=== PATIENT | male | born 1960 | race Caucasian/White ===

== ENCOUNTER → 2016-09-15 | Outpatient (CLI) | payer BC ==
[2016-09-15 10:41] LABS: ALT 33 U/L (21-72); AST 24 U/L (17-59); Alkaline Phosphatase 80 U/L (38-126); Anion Gap 11 mmol/L; Blood Urea Nitrogen 25 mg/dL (9-20); Calcium 9.6 mg/dL (8.4-10.2); Carbon Dioxide 26 mmol/L (22-30); Chloride 104 mmol/L (98-107); Cholesterol 173 mg/dL (<200); Glucose 106 mg/dL (74-99); HDL Cholesterol 51 mg/dL (40-60); Non-African American GFR(MDRD) >60 (>60 ml/min/1.73 sqM); Potassium 4.8 mmol/L (3.5-5.1); Sodium 141 mmol/L (137-145); Total Bilirubin 0.9 mg/dL (0.2-1.3); Total Protein 7.6 g/dL (6.3-8.2); Triglycerides 47 mg/dL (<150)
[2016-09-15 10:48] LABS: Basophils # (A) 0.1 k/uL (0-0.2); Basophils % (A) 1 %; CH 31.4; CHCM 33.6; Eosinophils # (A) 0.3 k/uL (0-0.7); Eosinophils % (A) 4 %; HCT 46.8 % (39.0-53.0); HDW 2.35; HGB 15.8 gm/dL (13.0-17.5); Luc # (Auto) 0.19; Luc % (Auto) 3; Lymphocytes # (A) 2.3 k/uL (1.0-4.8); Lymphocytes % (A) 34 %; MCH 31.8 pg (25.0-35.0); MCHC 33.8 g/dL (31.0-37.0); Mean Platelet Volume 7.4; Monocytes # (A) 0.5 k/uL (0-1.0); Monocytes % (A) 7 %; Neutrophils # (A) 3.6 k/uL (1.3-7.7); Neutrophils % (A) 52 %; RBC 4.98 m/uL (4.30-5.90); WBC 6.9 k/uL (3.8-10.6); WBC (Perox) 6.87
[2016-09-15 11:29] LABS: Hepatitis C Virus IgG Ab Negative (Negative); Hepatitis C Virus IgG Index 0.02
[2016-09-15 12:13] LABS: Prostate Specific Antigen 3.37 ng/mL (0.00-4.00)
== END | disposition home or self-care (01) ==
LOC: LABWHC1 10:05
PROVIDERS: ATTEND Family Medicine
DX: Z00.00 Encounter for general adult medical examination without abnormal findings (principal)
CPT/HCPCS: 36415; 80053; 80061; 84153; 85025; 86803

== ENCOUNTER 2019-04-29 17:54 | Emergency (ER) | payer BC, OTHER ==
[2019-04-29 18:09] LABS: Glucose,Whole Blood 112 mg/dL (75-99)
[2019-04-29] MEDS ORDERED: SODIUM CHLORIDE 0.9% 1,000 ML IV STA (18:10)
[2019-04-29] MEDS ORDERED: FAMOTIDINE 20 MG/2 ML VIAL IV STA (18:11)
[2019-04-29] MEDS ORDERED: methylPREDNISolone SOD SUCCI 125 MG/2 ML VIAL IV STA (18:11)
[2019-04-29] MEDS ORDERED: diphenhydrAMINE 50 MG/ML 1 ML VIAL IVP STA (18:11)
--- NOTE | 2019-04-29 18:30 | CT ---
EXAMINATION TYPE: CT brain wo con for TPA DATE OF EXAM: 04/29/2019 COMPARISON: None HISTORY: ams CT DLP: 1090.4 mGycm Automated exposure control for dose reduction was used. Multiple axial sections were obtained of the brain without contrast. There is 4.5 cm area of high attenuation left posterior temporal lobe related to acute parenchymal he morrhage. There is no midline shift. There is slight mass effect upon the posterior left lateral vent ricle. Calvarium is intact. IMPRESSION: Acute left temporal lobe parenchymal hemorrhage could relate to acute hemorrhagic infarct. Exam was d iscussed with Dr. Parada at 6:30 PM.
[2019-04-29 18:45] LABS: Basophils # (A) 0.1 k/uL (0-0.2); Basophils % (A) 1 %; Eosinophils # (A) 0.3 k/uL (0-0.7); Eosinophils % (A) 3 %; HCT 49.4 % (39.0-53.0); HGB 16.3 gm/dL (13.0-17.5); Lymphocytes # (A) 4.3 k/uL (1.0-4.8); Lymphocytes % (A) 40 %; MCH 30.6 pg (25.0-35.0); MCHC 33.1 g/dL (31.0-37.0); MCV 92.5 fL (80.0-100.0); Mean Platelet Volume 8.1; Monocytes # (A) 0.9 k/uL (0-1.0); Monocytes % (A) 9 %; Neutrophils # (A) 4.8 k/uL (1.3-7.7); Neutrophils % (A) 44 %; Platelet Count 353 k/uL (150-450); RBC 5.33 m/uL (4.30-5.90); RDW 12.5 % (11.5-15.5); WBC 10.8 k/uL (3.8-10.6)
[2019-04-29] MEDS ORDERED: levETIRAcetam IV 1,000 MG in SALINE 1 100ML.BAG IVPB STA (18:46)
[2019-04-29 19:01] LABS: Albumin 4.7 g/dL (3.5-5.0); Total Bilirubin 0.5 mg/dL (0.2-1.3); Total Protein 7.8 g/dL (6.3-8.2)
--- NOTE | 2019-04-29 19:03 | CT ---
EXAMINATION TYPE: CT angio head neck DATE OF EXAM: 04/29/2019 COMPARISON: None HISTORY: ams CT DLP: 484.5 mGycm Automated exposure control for dose reduction was used. CONTRAST: Performed with IV Contrast, patient injected with 65cc mL of Isovue 370. There are 3-D post processed images. Multiple axial sections were obtained from the level of the aortic arch to the vertex of the brain wi th intravenous contrast. FINDINGS: There is normal branching pattern of the great vessels on the aortic arch. There is bilateral arteria l flow in the subclavian arteries. There is bilateral arterial flow in the vertebral arteries. There is normal contrast opacification of the common internal and external carotid arteries. There is wide patency of the carotid artery bifurcations. There is no evidence of carotid or vertebral artery aneur ysm or dissection. Left vertebral artery is larger than the right. There is arterial flow in the vertebrobasilar artery system. There is arterial flow in the anterior m iddle and posterior cerebral arteries. There is high attenuation in the left posterior parietal lobe related to acute parenchymal hemorrhage. This measures 4 x 3.5 cm. There is some surrounding edema. T here is some mass effect upon adjacent vessels. There is no evidence of intracranial aneurysm or neov ascularity. There is normal contrast opacification of the venous sinuses. There is no evidence of hem odynamic intracranial arterial stenosis. IMPRESSION: Acute parenchymal hemorrhage left posterior parietal lobe. No significant angiographic abnormality. N egative CT angiogram of the neck.
[2019-04-29 19:04] LABS: Creatine Kinase 88 U/L (55-170)
[2019-04-29 19:09] LABS: INR 0.9 (<1.2); Partial Thromboplastin Time 22.5 sec (22.0-30.0); Prothrombin Time 9.5 sec (9.0-12.0)
--- NOTE | 2019-04-29 19:10 | ED ---
Neuro HPI - General Chief Complaint: Neuro Symptoms/Deficit Stated Complaint: poss stroke Time Seen by Provider: 04/29/19 18:10 Source: family, RN notes reviewed Mode of arrival: wheelchair Limitations: no limitations - History of Present Illness Is the patient presenting with stroke symptoms?: Yes Last Known Well Date: 04/29/19 Last Known Well Time: 16:30 Initial Comments: This is a 58-year-old male with history depression and history of hernia repair. A nondrinker nonsmoker no prior history of heart lung or neurological disease who started developing expressive aphasia and confusion 30 minutes prior to arrival here by private vehicle. No reports of headache nausea vomiting fevers chills sweats no definite focal weakness. No trauma reported no recent illnesses. - Related Data Allergies/Adverse Reactions: Allergies Allergy/AdvReac Type Severity Reaction Status Date / Time shellfish derived [Shellfish] Allergy Anaphylaxis Verified 04/29/19 18:03 Review of Systems ROS Statement: Those systems with pertinent positive or pertinent negative responses have been documented in the HPI. ROS Other: All systems not noted in ROS Statement are negative. General Exam - General Exam Comments Initial Comments: This is a well-developed well-nourished awake but confused male Limitations: no limitations General appearance: alert, other (Confused) Head exam: Present: atraumatic, normocephalic, normal inspection Eye exam: Present: normal appearance, PERRL, EOMI. Absent: scleral icterus, conjunctival injection, periorbital swelling ENT exam: Present: normal exam, mucous membranes moist Neck exam: Present: normal inspection, full ROM, other (No stridor JVD or bruits). Absent: tenderness, meningismus, lymphadenopathy Respiratory exam: Present: normal lung sounds bilaterally. Absent: respiratory distress, wheezes, rales, rhonchi, stridor Cardiovascular Exam: Present: regular rate, normal rhythm, normal heart sounds. Absent: systolic murmur, diastolic murmur, rubs, gallop, clicks GI/Abdominal exam: Present: soft, normal bowel sounds. Absent: distended, tenderness, guarding, rebound, rigid Extremities exam: Present: normal inspection, full ROM, normal capillary refill. Absent: tenderness, pedal edema, joint swelling, calf tenderness Back exam: Present: normal inspection Neurological exam: Present: alert, altered, CN II-XII intact Psychiatric exam: Present: normal affect, normal mood Skin exam: Present: warm, dry, intact, normal color. Absent: rash Stroke MDM - Lab Data Result diagrams: 04/29/19 18:20 04/29/19 18:20 Lab Results 04/29/19 04/29/19 04/29/19 Range/Units 18:02 18: 18:20 WBC 10.8 H (3.8-10.6) k/uL RBC 5.33 (4.30-5.90) m/uL Hgb 16.3 (13.0-17.5) gm/dL Hct 49.4 (39.0-53.0) % MCV 92.5 (80.0-100.0) fL MCH 30.6 (25.0-35.0) pg MCHC 33.1 (31.0-37.0) g/dL RDW 12.5 (11.5-15.5) % Plt Count 353 (150-450) k/uL PT (9.0-12.0) sec INR (<1.2) APTT (22.0-30.0) sec Sodium 137 (137-145) mmol/L Potassium 4.0 (3.5-5.1) mmol/L Chloride 102 (98-107) mmol/L Carbon Dioxide 23 (22-30) mmol/L Anion Gap 12 mmol/L BUN 24 H (9-20) mg/dL Creatinine 1.16 (0.66-1.25) mg/dL Est GFR (CKD-EPI)AfAm 80 (>60 ml/min/1.73 sqM) Est GFR (CKD-EPI)NonAf 70 (>60 ml/min/1.73 sqM) Glucose 119 H (74-99) mg/dL POC Glucose (mg/dL) 112 H (75-99) mg/dL POC Glu Beet Topper ID Rupal Drew Calcium 10.0 (8.4-10.2) mg/dL Total Bilirubin 0.5 (0.2-1.3) mg/dL AST 30 (17-59) U/L ALT 29 (4-49) U/L Alkaline Phosphatase 84 (38-126) U/L Total Creatine Kinase (55-170) U/L Total Protein 7.8 (6.3-8.2) g/dL Albumin 4.7 (3.5-5.0) g/dL 04/29/19 04/29/19 Range/Units 18:20 18:20 WBC (3.8-10.6) k/uL RBC (4.30-5.90) m/uL Hgb (13.0-17.5) gm/dL Hct (39.0-53.0) % MCV (80.0-100.0) fL MCH (25.0-35.0) pg MCHC (31.0-37.0) g/dL RDW (11.5-15.5) % Plt Count (150-450) k/uL PT 9.5 (9.0-12.0) sec INR 0.9 (<1.2) APTT 22.5 (22.0-30.0) sec Sodium (137-145) mmol/L Potassium (3.5-5.1) mmol/L Chloride (98-107) mmol/L Carbon Dioxide (22-30) mmol/L Anion Gap mmol/L BUN (9-20) mg/dL Creatinine (0.66-1.25) mg/dL Est GFR (CKD-EPI)AfAm (>60 ml/min/1.73 sqM) Est GFR (CKD-EPI)NonAf (>60 ml/min/1.73 sqM) Glucose (74-99) mg/dL POC Glucose (mg/dL) (75-99) mg/dL POC Glu Beet Topper ID Calcium (8.4-10.2) mg/dL Total Bilirubin (0.2-1.3) mg/dL AST (17-59) U/L ALT (4-49) U/L Alkaline Phosphatase (38-126) U/L Total Creatine Kinase 88 (55-170) U/L Total Protein (6.3-8.2) g/dL Albumin (3.5-5.0) g/dL - NIH Stroke Scale 1a. Level of Consciousness: (0) alert 1b. LOC Questions: (2) answers no questions correctly 1c. LOC Commands: (2) performs no tasks correctly 2. Best Gaze: (2) forced deviation 3. Visual: (3) bilateral hemianopia 5a. Motor Arm Left: (4) no movement 5b. Motor Arm Right: (4) no movement 6a. Motor Leg Left: (4) no movement 6b. Motor Leg Right: (4) no movement 7. Limb Ataxia: (0) absent 8. Sensory: (1) mild/moderate sensory loss 9. Best Language: (2) severe aphasia 10. Dysarthria: (1) mild/moderate dysarthria 11. Extinction/Inattention: (1) visual/tactile inattention - Thrombolytic Inclusion/Exclusion Thrombolytic Contraindications: GI or Other Bleeding (LeftTemporal lobe bleed) - EKG Data -: EKG Interpreted by Me EKG shows normal: sinus rhythm (Sinus rhythm of 94. Interval 156 QRS duration 60 QT since QTC 344/4:30 low-voltage QRS no acute ST-T wave changes) Past Medical History Past Medical History: No Reported History History of Any Multi-Drug Resistant Organisms: None Reported Past Surgical History: Hernia Repair Past Psychological History: No Psychological Hx Reported Smoking Status: Never smoker Past Alcohol Use History: None Reported Past Drug Use History: None Reported Course Vital Signs 04/29/19 04/29/19 04/29/19 17:58 18:15 18:45 Temperature 97.3 F L 97.3 F L Pulse Rate 104 H 84 84 Respiratory 18 18 18 Rate Blood Pressure 170/106 134/78 134/78 O2 Sat by Pulse 98 100 100 Oximetry - Reevaluation(s) Reevaluation #1: 04/29/19 19:16 Did reevaluate patient on multiple occasions he demonstrates no change in his status he does maintain adequate blood pressure. He does maintain his airway. Reevaluation #2: 04/29/19 19:16 A code stroke was called on the patient Dr. Chong did respond and did review the CAT scans were performed the initial plan was to transfer the patient to [facility] for microbiology laboratory manager. Discussion with family members initially confirmed that this was supple however the patient's family then changed her mind and requested [facility]. I did discuss the case with the transfer team as well as with Dr. Quick who did agree to accept the patient transfer. Patient will be transferred by ground ALS ambulance. The transfer can be performed quicker by ground in by air at this time. I did discuss with the patient's family. Agreement with this. Critical Care Time Critical Care Time: Yes Critical Care Time: 55 minutes of critical care time which included initial presentation with history physical labs imaging. Multiple reevaluation the patient multiple discussion with the patient's family members. Discussion with the interventional neurologist. Discussion with the receiving facility staff also discussed with paramedics. Disposition Clinical Impression: Cerebrovascular accident (CVA), Hemorrhagic stroke Disposition: OTHER INSTITUTION NOT DEFINED Condition: Serious Is patient prescribed a controlled substance at d/c from ED?: No Referrals: Rufus Bradford MD [Primary Care Provider] - 1-2 days - Out of Hospital Transfer - Req. Specs Out of Hospital Transfer - Requested Specifics: Other Emergency Center
[2019-04-29 19:17] LABS: Creatine Kinase MB 0.8 ng/mL (0.0-2.4); Troponin I <0.012 ng/mL (0.000-0.034)
[2019-04-29] MEDS ORDERED: cefTRIAXone IN SWFI 1,000 MG/10 ML SYRINGE IVP STA (19:21)
[2019-04-29 19:29] VITALS: BP 155/92; PULSE 91; RESP 16; TEMP 98.6
--- NOTE | 2019-04-29 19:40 | XR ---
EXAMINATION TYPE: XR chest 2V DATE OF EXAM: 04/29/2019 COMPARISON: NONE HISTORY: Confusion TECHNIQUE: FINDINGS: There is no heart failure nor confluent pneumonic infiltrate. Costophrenic angles are clear . There are no hilar masses. There is poor inspiration. Bony thorax is intact. IMPRESSION: Poor inspiration. Otherwise negative exam.
== END 2019-04-29 19:24 | disposition other institution (70) ==
LOC: EC 17:54
DX: I62.9 Nontraumatic intracranial hemorrhage, unspecified (principal); R47.01 Aphasia; R29.730 NIHSS score 30; Z91.013 Allergy to seafood
CPT/HCPCS: 36415; 80053; 82550; 82553; 84484; 85025; 85610; 85730; 71046; 70496; 70450; 70498; 99291; 96374; 96375 ×3; 96361; J1200; J2930; J1953; Q9967

== ENCOUNTER 2020-05-28 00:12 | Emergency (ER) | payer OTHER ==
[2020-05-28 00:20] VITALS: TEMP 98
--- NOTE | 2020-05-28 01:42 | ED ---
Weakness HPI - General Chief complaint: Weakness Stated complaint: Fever, SOB Time Seen by Provider: 05/28/20 00:36 Source: patient Mode of arrival: ambulatory Limitations: physical limitation - History of Present Illness Initial comments: 59-year-old male presents to the emergency department with a chief complaint of weakness. Patient reports he went to his son's house about 2 weeks ago and several days after began feeling fatigued with body aches. He does report a dry cough that only lasted for several days but has since resolved. Denies any ch est pain or shortness of breath. Does report chills but no fevers at home. States his also tested positive and is having the similar symptoms. He does report decreased appetite but denies any nausea vomiting or diarrhea. Not a smoker. No history of COPD or asthma. - Related Data Allergies Allergy/AdvReac Type Severity Reaction Status Date / Time shellfish derived [Shellfish] Allergy Anaphylaxis Verified 05/28/20 00:20 Review of Systems ROS Statement: Those systems with pertinent positive or pertinent negative responses have been documented in the HPI. ROS Other: All systems not noted in ROS Statement are negative. Past Medical History Past Medical History: Hyperlipidemia, Hypertension History of Any Multi-Drug Resistant Organisms: None Reported Past Surgical History: Hernia Repair Past Psychological History: No Psychological Hx Reported Smoking Status: Never smoker Past Alcohol Use History: None Reported Past Drug Use History: None Reported General Exam Limitations: no limitations General appearance: alert, in no apparent distress Head exam: Present: atraumatic, normocephalic, normal inspection Eye exam: Present: normal appearance, PERRL, EOMI Pupils: Present: normal accommodation ENT exam: Present: normal exam, normal oropharynx, mucous membranes moist Neck exam: Present: normal inspection, full ROM. Absent: tenderness Respiratory exam: Present: normal lung sounds bilaterally. Absent: respiratory distress, wheezes, rales, rhonchi, stridor, chest wall tenderness, accessory muscle use (No retractions) Cardiovascular Exam: Present: regular rate, normal rhythm, normal heart sounds. Absent: bradycardia, tachycardia, systolic murmur, diastolic murmur GI/Abdominal exam: Present: soft. Absent: distended, tenderness, guarding, rebound Extremities exam: Present: normal inspection, full ROM, normal capillary refill. Absent: tenderness, pedal edema, joint swelling, calf tenderness Back exam: Present: normal inspection, full ROM. Absent: tenderness, CVA tenderness (R), CVA tenderness (L) Neurological exam: Present: alert, oriented X3 Psychiatric exam: Present: normal affect, normal mood Skin exam: Present: warm, dry, intact, normal color Course Vital Signs 05/28/20 05/28/20 00:15 03:51 Temperature 98 F Pulse Rate 86 72 Respiratory 18 16 Rate Blood Pressure 106/69 110/68 O2 Sat by Pulse 94 L 94 L Oximetry EKG Findings - EKG Comments: EKG Findings:: Sinus rhythm and no ST or T-wave changes. Ventricular rate 75, GA 158, QRS 68, QTC 431. Medical Decision Making - Medical Decision Making 59-year-old male presents to the emergency room with a chief complaint of weakness and bodyaches. On physical examination, patient does not appear to be in any respiratory distress. Vital signs are within normal limits. A reveals diffuse airspace opacities. CBC CMP unremarkable. Coags within normal limits. D-dimer 0.47. Slight elevation in inflammatory markers LDH and CRP. Patient tested positive for coronavirus here. He was given the monoclonal antibiotics. Patient was observed for one hour after administration of the medication. Patient feels comfortable going home. Return parameters were thoroughly discussed with patient was understanding and agreeable. Case discussed with . - Lab Data Result diagrams: 05/28/20 01:15 05/28/20 01:15 Lab Results 05/28/20 05/28/20 05/28/20 Range/Units 01:15 01:15 01:15 WBC 7.8 (3.8-10.6) k/uL RBC 4.80 (4.30-5.90) m/uL Hgb 15.3 (13.0-17.5) gm/dL Hct 44.0 (39.0-53.0) % MCV 91.6 (80.0-100.0) fL MCH 32.0 (25.0-35.0) pg MCHC 34.9 (31.0-37.0) g/dL RDW 12.1 (11.5-15.5) % Plt Count 278 (150-450) k/uL MPV 8.0 Neutrophils % 60 % Lymphocytes % 27 % Monocytes % 8 % Eosinophils % 3 % Basophils % 1 % Neutrophils # 4.6 (1.3-7.7) k/uL Lymphocytes # 2.1 (1.0-4.8) k/uL Monocytes # 0.6 (0-1.0) k/uL Eosinophils # 0.2 (0-0.7) k/uL Basophils # 0.1 (0-0.2) k/uL PT 9.5 (9.0-12.0) sec INR 0.9 (<1.2) APTT 25.0 (22.0-30.0) sec D-Dimer 0.47 (<0.60) mg/L FEU Sodium 136 L (137-145) mmol/L Potassium 4.1 (3.5-5.1) mmol/L Chloride 101 (98-107) mmol/L Carbon Dioxide 27 (22-30) mmol/L Anion Gap 8 mmol/L BUN 24 H (9-20) mg/dL Creatinine 0.84 (0.66-1.25) mg/dL Est GFR (CKD-EPI)AfAm >90 (>60 ml/min/1.73 sqM) Est GFR (CKD-EPI)NonAf >90 (>60 ml/min/1.73 sqM) Glucose 97 (74-99) mg/dL Plasma Lactic Acid Juan C (0.7-2.0) mmol/L Calcium 8.6 (8.4-10.2) mg/dL Magnesium 2.1 (1.6-2.3) mg/dL Ferritin 436.5 H (22.0-322.0) ng/mL Total Bilirubin 0.6 (0.2-1.3) mg/dL AST 39 (17-59) U/L ALT 21 (4-49) U/L Alkaline Phosphatase 85 (38-126) U/L Lactate Dehydrogenase 751 H (313-618) U/L C-Reactive Protein 52.1 H (<10.0) mg/L Total Protein 6.3 (6.3-8.2) g/dL Albumin 3.4 L (3.5-5.0) g/dL Procalcitonin (0.02-0.09) ng/mL Coronavirus (PCR) (Not Detectd) 05/28/20 05/28/20 05/28/20 Range/Units 01:15 01:15 01:47 WBC (3.8-10.6) k/uL RBC (4.30-5.90) m/uL Hgb (13.0-17.5) gm/dL Hct (39.0-53.0) % MCV (80.0-100.0) fL MCH (25.0-35.0) pg MCHC (31.0-37.0) g/dL RDW (11.5-15.5) % Plt Count (150-450) k/uL MPV Neutrophils % % Lymphocytes % % Monocytes % % Eosinophils % % Basophils % % Neutrophils # (1.3-7.7) k/uL Lymphocytes # (1.0-4.8) k/uL Monocytes # (0-1.0) k/uL Eosinophils # (0-0.7) k/uL Basophils # (0-0.2) k/uL PT (9.0-12.0) sec INR (<1.2) APTT (22.0-30.0) sec D-Dimer (<0.60) mg/L FEU Sodium (137-145) mmol/L Potassium (3.5-5.1) mmol/L Chloride (98-107) mmol/L Carbon Dioxide (22-30) mmol/L Anion Gap mmol/L BUN (9-20) mg/dL Creatinine (0.66-1.25) mg/dL Est GFR (CKD-EPI)AfAm (>60 ml/min/1.73 sqM) Est GFR (CKD-EPI)NonAf (>60 ml/min/1.73 sqM) Glucose (74-99) mg/dL Plasma Lactic Acid Juan C 1.0 (0.7-2.0) mmol/L Calcium (8.4-10.2) mg/dL Magnesium (1.6-2.3) mg/dL Ferritin (22.0-322.0) ng/mL Total Bilirubin (0.2-1.3) mg/dL AST (17-59) U/L ALT (4-49) U/L Alkaline Phosphatase (38-126) U/L Lactate Dehydrogenase (313-618) U/L C-Reactive Protein (<10.0) mg/L Total Protein (6.3-8.2) g/dL Albumin (3.5-5.0) g/dL Procalcitonin 0.06 (0.02-0.09) ng/mL Coronavirus (PCR) Detected A (Not Detectd) Disposition Clinical Impression: Pneumonia due to COVID-19 virus Disposition: HOME SELF-CARE Condition: Stable Instructions (If sedation given, give patient instructions): Coronavirus Disease 2019 (COVID-19) Additional Instructions: Please return to the Emergency Department if symptoms worsen or any other concerns. Is patient prescribed a controlled substance at d/c from ED?: No Referrals: Arya Carmona MD [Primary Care Provider] - 1-2 days Time of Disposition: 02:52
[2020-05-28 01:43] LABS: Basophils # (A) 0.1 k/uL (0-0.2); Basophils % (A) 1 %; Eosinophils # (A) 0.2 k/uL (0-0.7); Eosinophils % (A) 3 %; HGB 15.3 gm/dL (13.0-17.5); Lymphocytes # (A) 2.1 k/uL (1.0-4.8); Lymphocytes % (A) 27 %; MCHC 34.9 g/dL (31.0-37.0); MCV 91.6 fL (80.0-100.0); Monocytes # (A) 0.6 k/uL (0-1.0); Monocytes % (A) 8 %; Neutrophils # (A) 4.6 k/uL (1.3-7.7); Neutrophils % (A) 60 %; Platelet Count 278 k/uL (150-450); RDW 12.1 % (11.5-15.5); WBC 7.8 k/uL (3.8-10.6)
[2020-05-28 01:54] LABS: D-Dimer 0.47 mg/L FEU (<0.60); INR 0.9 (<1.2); Prothrombin Time 9.5 sec (9.0-12.0)
--- NOTE | 2020-05-28 02:07 | XR ---
EXAM: XR Chest, 1 View CLINICAL HISTORY: ITS.REASON XR Reason: Suspected COVID-19 pneumonia TECHNIQUE: Frontal view of the chest. COMPARISON: No relevant prior studies available. FINDINGS: Lungs: Diffuse airspace opacities which may be inflammatory or infectious. Pleural space: Unremarkable. Heart: Unremarkable. Mediastinum: Unremarkable. Bones/joints: Unremarkable. IMPRESSION: Diffuse airspace opacities which may be inflammatory or infectious.
[2020-05-28] MEDS ORDERED: BAMLANIVIMAB 700 MG in SODIUM CHLORIDE 0.9% 50 ML IVPB ONE (02:15)
[2020-05-28 02:46] LABS: ALT 21 U/L (4-49); AST 39 U/L (17-59); African American GFR (CKD) >90 (>60 ml/min/1.73 sqM); Albumin 3.4 g/dL (3.5-5.0); Alkaline Phosphatase 85 U/L (38-126); Anion Gap 8 mmol/L; Blood Urea Nitrogen 24 mg/dL (9-20); C Reactive Protein 52.1 mg/L (<10.0); Calcium 8.6 mg/dL (8.4-10.2); Carbon Dioxide 27 mmol/L (22-30); Chloride 101 mmol/L (98-107); Glucose 97 mg/dL (74-99); LDH 751 U/L (313-618); Magnesium 2.1 mg/dL (1.6-2.3); Non-African American GFR(CKD) >90 (>60 ml/min/1.73 sqM); Potassium 4.1 mmol/L (3.5-5.1); Sodium 136 mmol/L (137-145); Total Bilirubin 0.6 mg/dL (0.2-1.3); Total Protein 6.3 g/dL (6.3-8.2)
[2020-05-28 03:54] VITALS: BP 110/68; PULSE 72; RESP 16
[2020-05-28 13:09] LABS: Ferritin 436.5 ng/mL (22.0-322.0)
== END 2020-05-28 04:09 | disposition home or self-care (01) ==
LOC: EC 00:12
DX: U07.1 COVID-19 (principal); J12.82 Pneumonia due to coronavirus disease 2019; E78.5 Hyperlipidemia, unspecified; I10 Essential (primary) hypertension
CPT/HCPCS: 36415; 93005; 85379; 80053; 82728; 83605; 83615; 83735; 85025; 85610; 85730; 86140; 87040; 84145; 87635; 71045; 99285; Q0239

== ENCOUNTER 2023-03-02 08:34 | Emergency (ER) | payer MEDICARE ==
[2023-03-02] MEDS ORDERED: FAMOTIDINE 20 MG/2 ML VIAL IV STA (09:22)
[2023-03-02] MEDS ORDERED: methylPREDNISolone SOD SUCCI 125 MG/2 ML VIAL IV STA (09:22)
[2023-03-02] MEDS ORDERED: diphenhydrAMINE 50 MG/ML 1 ML VIAL IVP STA (09:22)
[2023-03-02 09:27] LABS: Basophils % (A) 1 %; Eosinophils # (A) 0.2 k/uL (0-0.7); Eosinophils % (A) 3 %; HGB 17.2 gm/dL (13.0-17.5); Lymphocytes # (A) 3.1 k/uL (1.0-4.8); Lymphocytes % (A) 40 %; MCHC 33.7 g/dL (31.0-37.0); Mean Platelet Volume 8.1; Monocytes # (A) 0.4 k/uL (0-1.0); Monocytes % (A) 5 %; Neutrophils # (A) 3.9 k/uL (1.3-7.7); Neutrophils % (A) 49 %; Platelet Count 302 k/uL (150-450); RBC 5.37 m/uL (4.30-5.90); RDW 12.9 % (11.5-15.5); WBC 7.8 k/uL (3.8-10.6)
[2023-03-02 09:35] LABS: INR 0.9 (<1.2); Partial Thromboplastin Time 23.8 sec (22.0-30.0); Prothrombin Time 10.4 sec (10.0-12.5)
[2023-03-02 09:40] LABS: ALT 29 U/L (4-49); AST 30 U/L (17-59); African American GFR (CKD) 89 (>60 ml/min/1.73 sqM); Albumin 3.9 g/dL (3.5-5.0); Alkaline Phosphatase 90 U/L (38-126); Anion Gap 11 mmol/L; Blood Urea Nitrogen 28 mg/dL (9-20); Calcium 9.4 mg/dL (8.4-10.2); Carbon Dioxide 24 mmol/L (22-30); Chloride 105 mmol/L (98-107); Creatine Kinase 285 U/L (55-170); Glucose 147 mg/dL (74-99); Non-African American GFR(CKD) 77 (>60 ml/min/1.73 sqM); Potassium 4.7 mmol/L (3.5-5.1); Sodium 140 mmol/L (137-145); Total Bilirubin 0.8 mg/dL (0.2-1.3); Total Protein 6.9 g/dL (6.3-8.2)
--- NOTE | 2023-03-02 10:23 | ED ---
General Adult HPI - General Chief complaint: Neuro Symptoms/Deficit Stated complaint: Chest pains/Sob Time Seen by Provider: 03/02/23 08:50 Source: patient, RN notes reviewed Mode of arrival: ambulatory Limitations: no limitations - History of Present Illness Initial comments: 62-year-old male presents emergency Department with chief complaint of oral nu mbness, bilateral hand and feet numbness. Patient states that he had a fall yesterday and hurt his low back he states he had no head injury no loss conscious states this [facility] and developed the symptoms shortly after taking some ibuprofen. 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 He has no chest pain shortness of breath neck pain or any back pain in his upper back states his low back from the fall. Denies any blood thinners denies any focal weakness denies any difficulty swallowing. Patient states his symptoms that he developed prior to coming are resolving - Related Data Allergies Allergy/AdvReac Type Severity Reaction Status Date / Time shellfish derived [Shellfish] Allergy Anaphylaxis Verified 03/02/23 08:41 Review of Systems ROS Statement: Those systems with pertinent positive or pertinent negative responses have been documented in the HPI. ROS Other: All systems not noted in ROS Statement are negative. Past Medical History Past Medical History: CVA/TIA, Hyperlipidemia, Hypertension History of Any Multi-Drug Resistant Organisms: None Reported Past Surgical History: Hernia Repair Past Psychological History: No Psychological Hx Reported Smoking Status: Never smoker Past Alcohol Use History: None Reported Past Drug Use History: None Reported General Exam Limitations: no limitations General appearance: alert, in no apparent distress Head exam: Present: atraumatic, normocephalic, normal inspection Eye exam: Present: normal appearance, PERRL, EOMI. Absent: scleral icterus, c onjunctival injection, periorbital swelling ENT exam: Present: normal exam, normal oropharynx, mucous membranes moist Neck exam: Present: normal inspection, full ROM. Absent: tenderness, meningismus, lymphadenopathy Respiratory exam: Present: normal lung sounds bilaterally. Absent: respiratory distress, wheezes, rales, rhonchi, stridor Cardiovascular Exam: Present: regular rate, normal rhythm, normal heart sounds. Absent: systolic murmur, diastolic murmur, rubs, gallop, clicks GI/Abdominal exam: Present: soft, normal bowel sounds. Absent: distended, tenderness, guarding, rebound, rigid Extremities exam: Present: normal inspection, full ROM, normal capillary refill. Absent: tenderness, pedal edema, joint swelling, calf tenderness Back exam: Present: full ROM, tenderness (Lumbar region) Neurological exam: Present: alert, oriented X3, CN II-XII intact, reflexes normal. Absent: motor sensory deficit Expanded Patient oriented to: Present: person, place, time Speech: Present: expressive aphasia (Minimal) Cranial nerves: EOM's Intact: Normal, Gag Reflex: Normal, Tongue Deviation: Normal, Facial Sensation: Normal Cerebellar function: Finger to Nose: Normal, Heel to Saez: Normal Sensory exam: Upper Extremity Light Touch: Normal, UE 2 Point Discrimination: Normal, Lower Extremity Light Touch: Normal, LE 2 Point Discrimination: Normal Motor strength exam: RUE: 5, LUE: 5, RLE: 5, LLE: 5 Eye Response: (4) open spontaneously Motor Response: (6) obeys commands Verbal Response: (5) oriented [place] Total: 15 Course Vital Signs 03/02/23 08:37 Temperature 98 F Pulse Rate 67 Respiratory 20 Rate Blood Pressure 105/57 O2 Sat by Pulse 99 Oximetry EKG Findings - EKG Comments: EKG Findings:: EKG performed a: 53 sinus rhythm rate of 68 [place] 176/77 QT/QTC 368/385 - EKG Results: EKG: interpreted by MY Medical Decision Making - Medical Decision Making Was pt. sent in by a medical professional or institution (, PA, ASSISTANT OPERATOR, urgent care, hospital, or shelter...) When possible be specific @ -No Did you speak to anyone other than the patient for history (EMS, parent, family, police, friend...)? What history was obtained from this source @ -No Did you review nursing and triage notes (agree or disagree)? Why? @ -I reviewed and agree with nursing and triage notes Were old charts reviewed (outside hosp., previous admission, EMS record, old EKG, old radiological studies, urgent care reports/EKG's, shelter records)? Report findings @ -No old charts were reviewed Differential Diagnosis (chest pain, altered mental status, abdominal pain women, abdominal pain men, vaginal bleeding, weakness, fever, dyspnea, syncope, headache, dizziness, GI bleed, back pain, seizure, CVA, palpatations, mental health, musculoskeletal)? @ -nDifferential Dizziness: Benign paroxysmal positional Vertigo, Menieres disease, otitis media, acoustic neuroma, vertebrobasilar insufficiency, cerebellar stroke, encephalitis, hypovolemic, arrhythmia, coronary artery syndrome, anemia, this is not meant to be an all-inclusive listle EKG interpreted by me (3pts min.). @ -As above X-rays interpreted by me (1pt min.). @ -Chest x-ray shows no acute cardiopulmonary process, x-ray lumbar spine no acute fracture CT interpreted by me (1pt min.). @ -CT brain shows old changes, craniotomy flap. CT brain, neck angio shows no stenosis U/S interpreted by me (1pt. min.). @ -None done What testing was considered but not performed or refused? (CT, X-rays, U/S, labs)? Why? @ -None What meds were considered but not given or refused? Why? @ -None Did you discuss the management of the patient with other professionals (professionals i.e. , PA, ASSISTANT OPERATOR, lab, RT, psych nurse, social work professor, control systems developer, teacher, chief executive officer, sample case porter)? Give summary @ -No Was smoking cessation discussed for >3mins.? @ -No Was critical care preformed (if so, how long)? @ -No Were there social determinants of health that impacted care today? How? (Homelessness, low income, unemployed, alcoholism, drug addiction, transportation, low edu. Level, literacy, decrease access to med. care, alf, rehab)? @ -No Was there de-escalation of care discussed even if they declined (Discuss DNR or withdrawal of care, Hospice)? DNR status @ -No What co-morbidities impacted this encounter? (DM, HTN, Smoking, COPD, CAD, Cancer, CVA, ARF, Chemo, Hep., AIDS, mental health diagnosis, sleep apnea, morbid obesity)? @ -CVA Was patient admitted / discharged? Hospital course, mention meds given and route, prescriptions, significant lab abnormalities, going to OR and other pertinent info. @ -Discharge patient was offered admission secondary to paresthesias of his oral region hands and feet which are bilateral with no associated other symptoms. Patient remains to be asymptomatic at this time workup including CT labs and EKG is unremarkable patient declines admission along with declines and agrees to go home and they will return for any return or worsening changes symptoms Undiagnosed new problem with uncertain prognosis? @ -No Drug Therapy requiring intensive monitoring for toxicity (Heparin, Nitro, Insulin, Cardizem)? @ -No Were any procedures done? @ -No Diagnosis/symptom? @ -Paresthesias Acute, or Chronic, or Acute on Chronic? @ -[Acute Uncomplicated (without systemic symptoms) or Complicated (systemic symptoms)? @ -complicated Side effects of treatment? @ -No Exacerbation, Progression, or Severe Exacerbation? @ -No Poses a threat to life or bodily function? How? (Chest pain, [place], [place], pneumonia, PE, COPD, DKA, ARF, appy, cholecystitis, CVA, Diverticulitis, Homicidal, Suicidal, threat to staff... and all critical care pts) @ -No - Lab Data Result diagrams: 03/02/23 09:14 03/02/23 09:14 Lab Results 03/02/23 03/02/23 03/02/23 Range/Units 09:14 09:14 09:14 WBC 7.8 (3.8-10.6) k/uL RBC 5.37 (4.30-5.90) m/uL Hgb 17.2 (13.0-17.5) gm/dL Hct 51.0 (39.0-53.0) % MCV 95.0 (80.0-100.0) fL MCH 32.0 (25.0-35.0) pg MCHC 33.7 (31.0-37.0) g/dL RDW 12.9 (11.5-15.5) % Plt Count 302 (150-450) k/uL MPV 8.1 Neutrophils % 49 % Lymphocytes % 40 % Monocytes % 5 % Eosinophils % 3 % Basophils % 1 % Neutrophils # 3.9 (1.3-7.7) k/uL Lymphocytes # 3.1 (1.0-4.8) k/uL Monocytes # 0.4 (0-1.0) k/uL Eosinophils # 0.2 (0-0.7) k/uL Basophils # 0.0 (0-0.2) k/uL PT 10.4 (10.0-12.5) sec INR 0.9 (<1.2) APTT 23.8 (22.0-30.0) sec Sodium 140 (137-145) mmol/L Potassium 4.7 (3.5-5.1) mmol/L Chloride 105 (98-107) mmol/L Carbon Dioxide 24 (22-30) mmol/L Anion Gap 11 mmol/L BUN 28 H (9-20) mg/dL Creatinine 1.04 (0.66-1.25) mg/dL Est GFR (CKD-EPI)AfAm 89 (>60 ml/min/1.73 sqM) Est GFR (CKD-EPI)NonAf 77 (>60 ml/min/1.73 sqM) Glucose 147 H (74-99) mg/dL Calcium 9.4 (8.4-10.2) mg/dL Total Bilirubin 0.8 (0.2-1.3) mg/dL AST 30 (17-59) U/L ALT 29 (4-49) U/L Alkaline Phosphatase 90 (38-126) U/L Creatine Kinase 285 H (55-170) U/L Troponin I (0.000-0.034) ng/mL Total Protein 6.9 (6.3-8.2) g/dL Albumin 3.9 (3.5-5.0) g/dL 03/02/23 Range/Units 09:14 WBC (3.8-10.6) k/uL RBC (4.30-5.90) m/uL Hgb (13.0-17.5) gm/dL Hct (39.0-53.0) % MCV (80.0-100.0) fL MCH (25.0-35.0) pg MCHC (31.0-37.0) g/dL RDW (11.5-15.5) % Plt Count (150-450) k/uL MPV Neutrophils % % Lymphocytes % % Monocytes % % Eosinophils % % Basophils % % Neutrophils # (1.3-7.7) k/uL Lymphocytes # (1.0-4.8) k/uL Monocytes # (0-1.0) k/uL Eosinophils # (0-0.7) k/uL Basophils # (0-0.2) k/uL PT (10.0-12.5) sec INR (<1.2) APTT (22.0-30.0) sec Sodium (137-145) mmol/L Potassium (3.5-5.1) mmol/L Chloride (98-107) mmol/L Carbon Dioxide (22-30) mmol/L Anion Gap mmol/L BUN (9-20) mg/dL Creatinine (0.66-1.25) mg/dL Est GFR (CKD-EPI)AfAm (>60 ml/min/1.73 sqM) Est GFR (CKD-EPI)NonAf (>60 ml/min/1.73 sqM) Glucose (74-99) mg/dL Calcium (8.4-10.2) mg/dL Total Bilirubin (0.2-1.3) mg/dL AST (17-59) U/L ALT (4-49) U/L Alkaline Phosphatase (38-126) U/L Creatine Kinase (55-170) U/L Troponin I <0.012 (0.000-0.034) ng/mL Total Protein (6.3-8.2) g/dL Albumin (3.5-5.0) g/dL Disposition Clinical Impression: Paresthesias Disposition: HOME SELF-CARE Condition: Stable Additional Instructions: Please return to the Emergency Department if symptoms worsen or any other concerns. Is patient prescribed a controlled substance at d/c from ED?: No Referrals: Arya Carmona MD [Primary Care Provider] - 1-2 days Time of Disposition: 11:09
--- NOTE | 2023-03-02 10:38 | CT ---
EXAMINATION TYPE: CT brain wo con DATE OF EXAM: 03/02/2023 COMPARISON: 04/29/2019 HISTORY: 62-year-old male Pt fell yesterday. Pt started having numbness to both hands and both feet. Pt also has numbness to his mouth. Pt had a stroke 3 years ago. TECHNIQUE: Examination was done in axial plane without intravenous contrast. Coronal and sagittal r econstructions performed. CT DLP: 1099.6 mGycm Automated exposure control for dose reduction was used. FINDINGS: Craniotomy flap along the left lateral convexity with underlying encephalomalacia and chronic calcifi cation involving the temporoparietal junction at the site of previous intraparenchymal hematoma. There is no evidence of acute intracranial hemorrhage, acute ischemic changes, mass, mass-effect, or extra-axial fluid collection. There is no effacement of cerebral sulci or basal subarachnoid cister ns. There is no hydrocephalus. There is no midline shift. Nagel-white matter distinction is preserv ed. There is leftward nasal septal deviation. Trace mucosal thickening ethmoid air cells. Orbits and glob es are intact. Mastoid air cells well pneumatized. IMPRESSION: 1. Left lateral craniotomy flap with underlying encephalomalacia and chronic calcification at the sit e of previous large intraparenchymal hematoma seen on 2019. 2. No acute intracranial abnormality seen.
--- NOTE | 2023-03-02 10:43 | CT ---
EXAMINATION TYPE: CT angio head neck DATE OF EXAM: 03/02/2023 COMPARISON: 04/29/2019 HISTORY: 62-year-old male Pt fell yesterday. Pt started having numbness to both hands and both feet. Pt also has numbness to his mouth. Pt had a stroke 3 years ago. TECHNIQUE: Contiguous axial scanning of the head and neck performed with IV Contrast, patient injecte d with 65 mL of Isovue 370. Coronal/sagittal reconstructions performed. 3-D reconstructions generated on a dedicated independent workstation. CT DLP: 637.5 mGycm Automated exposure control for dose reduction was used. FINDINGS: Neck: There may be mild circumferential wall thickening of the visualized esophagus correlate for any poten tial symptoms of an esophagitis. Conventional arch vessel branching anatomy. Dominant left vertebral artery. Both vertebral arteries are patent throughout their course. Bilateral common and bilateral internal carotid arteries are widely patent. NASCET criteria is utili zed. Head: Dominant left vertebral artery. Otherwise, vertebral and basilar arteries as well as the remainder of the posterior circulation are patent. The internal carotid arteries and remainder of the anterior circulation is patent. No aneurysmal change is identified. Dural venous sinuses are patent. IMPRESSION: NECK: 1. WIDELY PATENT VERTEBRAL AND CAROTID ARTERIES OF THE NECK. 2. DOMINANT LEFT VERTEBRAL ARTERY. 3. MILD CIRCUMFERENTIAL WALL THICKENING SUGGESTED OF THE VISUALIZED ESOPHAGUS. CORRELATE FOR ANY POTE NTIAL SYMPTOMS OF ESOPHAGITIS. HEAD: 4. NO LARGE VESSEL INTRACRANIAL ARTERIAL OCCLUSION, SIGNIFICANT STENOSIS, OR ANEURYSMAL CHANGE IS SEE N.
--- NOTE | 2023-03-02 10:55 | XR ---
EXAMINATION TYPE: XR chest 2V DATE OF EXAM: 03/02/2023 COMPARISON: 05/28/2020. HISTORY: Chest pain. TECHNIQUE: Frontal and lateral views of the chest are obtained. FINDINGS: There is no focal air space opacity, pleural effusion, or pneumothorax seen. The cardiac silhouette size is within normal limits. The osseous structures are intact. IMPRESSION: No acute cardiopulmonary process.
--- NOTE | 2023-03-02 10:56 | XR ---
3 view lumbar spine. DATE: 02/28/2023. COMPARISON: None available. MEDICAL HISTORY: Pain after fall. FINDINGS: The vertebral bodies are well aligned without evidence of fracture, subluxation or dislocation. There is mild degenerative disc space narrowing at L3-4 and L4-5. Scattered anterior osteophytes are also seen throughout the spine. Mild multilevel degenerative facet changes are seen throughout the lo wer lumbar region. The vertebral body heights are maintained. There is residual contrast within the renal collecting systems bilaterally from a recent CTA of the h ead and neck. IMPRESSION: Mild degenerative changes with no acute osseous abnormalities.
[2023-03-02 11:22] VITALS: BP 109/64; PULSE 87; RESP 18; TEMP 98.5
== END 2023-03-02 11:24 | disposition home or self-care (01) ==
LOC: EC 08:34
DX: R20.2 Paresthesia of skin (principal); I10 Essential (primary) hypertension; Z91.013 Allergy to seafood
CPT/HCPCS: 36415; 93005; 80053; 82550; 84484; 85025; 85610; 85730; 72100; 71046; 70496; 70450; 70498; 96374; 96375 ×2; 99284; J1200; J2930; J3490; Q9967

== ENCOUNTER → 2023-05-15 | Outpatient (CLI) | payer MEDICARE ==
[2023-05-15 15:00] VITALS: BP 117/71; PULSE 56; RESP 16; TEMP 97.6
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
== END ==
LOC: 3 N SLEEP 13:42
PROVIDERS: ATTEND Internal Medicine Critical Care Medicine
DX: G47.33 Obstructive sleep apnea (adult) (pediatric) (principal); G25.81 Restless legs syndrome; E78.5 Hyperlipidemia, unspecified; F41.9 Anxiety disorder, unspecified; F32.A Depression, unspecified; I10 Essential (primary) hypertension; Z91.013 Allergy to seafood; Z86.73 Personal history of transient ischemic attack (TIA), and cerebral infarction without residual deficits; Z79.899 Other long term (current) drug therapy; Z98.890 Other specified postprocedural states
CPT/HCPCS: 99211

== ENCOUNTER → 2024-06-02 | Outpatient (CLI) | payer MEDICARE ==
[2024-06-02 15:19] LABS: Basophils # (A) 0.12 X 10*3/uL (0.00-0.10); Basophils % (A) 1.4 %; Eosinophils % (A) 5.7 %; HCT 47.5 % (39.6-50.0); HGB 15.6 g/dL (13.0-17.0); MCH 30.6 pg (27.0-32.0); MCHC 32.8 g/dL (32.0-37.0); MCV 93.3 FL (80.0-97.0); Mean Platelet Volume 10.5 FL (9.5-12.2); Monocytes # (A) 0.76 X 10*3/uL (0.20-1.00); Monocytes % (A) 8.6 %; NRBC Per 100 WBC 0 X 10*3/uL (0.00-0.01); Neutrophils # (A) 4.42 X 10*3/uL (1.80-7.70); Neutrophils % (A) 50.1 %; Platelet Count 309 X 10*3/uL (140-440); RBC 5.09 X 10*6/uL (4.40-5.60); RDW 13.1 % (11.5-14.5); WBC 8.82 X 10*3/uL (4.50-10.00)
[2024-06-02 15:43] LABS: ALT 26 U/L (10-49); AST 24 U/L (14-35); Albumin 4.2 g/dL (3.8-4.9); Albumin/Globulin Ratio 1.45 Ratio (1.60-3.17); Alkaline Phosphatase 98 U/L (41-126); Blood Urea Nitrogen 15.4 mg/dL (9.0-27.0); Calcium 9.8 mg/dL (8.7-10.3); Chloride 104 mmol/L (96-109); Chol/HDL Ratio 2.49 Ratio; Globulin 2.9 g/dL (1.6-3.3); Glucose 108 mg/dL (70-110); LDL Cholesterol,Calculated 50.2 mg/dL (0.0-131.0); Potassium 5.2 mmol/L (3.5-5.5); Prostate Specific Antigen 4.17 ng/mL (0.000-4.500); Sodium 139 mmol/L (135-145); Total Bilirubin 0.6 mg/dL (0.3-1.2); Total Protein 7.1 g/dL (6.2-8.2); VLDL Calculation 11.98 mg/dL (5.00-40.00)
== END | disposition home or self-care (01) ==
LOC: LABWHC1 10:17
PROVIDERS: ATTEND Family Medicine
DX: Z00.00 Encounter for general adult medical examination without abnormal findings (principal); I10 Essential (primary) hypertension; R97.20 Elevated prostate specific antigen [PSA]
CPT/HCPCS: 36415; 80053; 80061; 83036; 84153; 84443; 85025